=== PATIENT | male | born 1955 | race Caucasian/White ===

== ENCOUNTER → 2016-08-09 | Outpatient (CLI) | payer MEDICARE | LOC: US 06-14 09:30 | DX: I71.4 Abdominal aortic aneurysm, without rupture (principal); I72.3 Aneurysm of iliac artery | CPT/HCPCS: 93979 ==

== ENCOUNTER → 2016-08-24 | Outpatient (CLI) | payer MEDICARE | LOC: HEART 5 11:30 | DX: R00.2 Palpitations (principal) | CPT/HCPCS: 93306 ==